=== PATIENT | female | born 1980 | race Caucasian/White ===

== ENCOUNTER 2018-04-09 14:59 | Outpatient (CLI) | payer BC ==
--- NOTE | 2018-04-09 16:02 | ULT ---
LEFT BREAST ULTRASOUND: Date: 04/09/18 HISTORY: 38-year-old female with palpable abnormality at the 11-12 o'clock positions of the left breast. FINDINGS: Correlation is made with mammograms from same date. Sonographic evaluation in the regions of palpable concern demonstrates cysts at the 11 and 12 o'clock positions of the left breast, measuring up to 6.0 mm. IMPRESSION: BIRADS Category 2 - Benign findings. Return to age-appropriate screening based on risk factors. POS: OFF
== END 2018-04-09 15:00 | disposition home or self-care (01) ==
LOC: BICMAMMO 14:59
PROVIDERS: ATTEND Family Medicine
DX: N63.22 Unspecified lump in the left breast, upper inner quadrant (principal)
CPT/HCPCS: 77066; G0279

== ENCOUNTER 2020-05-26 12:49 | Emergency (ER) | payer BC ==
[2020-05-26] MEDS ORDERED: HYDROcodone/Acetaminophen 5/325 mg Tablet ONE (14:17)
== END 2020-05-26 15:00 | disposition home or self-care (01) ==
LOC: ERS 12:49
DX: M79.661 Pain in right lower leg (principal)

== ENCOUNTER 2024-02-13 23:55 | Observation (INO) | payer BC ==
[2024-02-14] MEDS ORDERED: Ondansetron ODT 4 MG TAB ONE (00:06)
[2024-02-14] MEDS ORDERED: Aspirin Chewable 81 MG TAB ONE (00:06)
[2024-02-14 00:41] LABS: #Basophils 0.12 10x3/uL (0.0-0.2); %Basophils 1.1 % (0.0-1.0); %Eosinophils 1.9 % (0.0-10.0); %Lymphocytes 27.7 % (21.0-51.0); %Monocytes 7.8 % (0.0-10.0); Hematocrit 34.3 % (36.0-47.0); Hemoglobin 10.8 g/dL (12.0-16.0); Mean Corpuscular HGB CONC 31.5 g/dL (32.0-36.0); Mean Corpuscular Hemoglobin 25.9 pg (27.0-31.0); Mean Corpuscular Volume 82.3 fL (78.0-98.0); Mean Platelet Volume 10.4 fL (7.4-10.4); Platelet Count 330 10x3/uL (130-400); RBC Distribution Width 15.2 % (11.5-14.5); Red Blood Cell (RBC) Count 4.17 mill/uL (4.20-5.40)
[2024-02-14 01:01] LABS: Troponin I Less than 0.010 ng/mL (< 0.028)
[2024-02-14 01:03] LABS: ALT (SGPT) 20 U/L (8-55); AST (SGOT) 16 U/L (5-34); Albumin 3.8 g/dL (3.5-5.0); Alkaline Phosphatase 87 U/L (40-110); Anion Gap 13 mmol/L (10-20); BUN (Urea Nitrogen) 10 mg/dL (7.0-18.7); Bilirubin, Total 0.2 mg/dL (0.2-1.2); Calc. Creatinine Clearance 0 mL/min (70-130); Carbon Dioxide 22 mmol/L (22-29); Chloride 106 mmol/L (98-107); Estimated GFR 98; Globulin 3.5 g/dL (2.4-3.5); Glucose 117 mg/dL (70-105); Potassium 3.4 mmol/L (3.5-5.1); Protein, Total 7.3 g/dL (6.0-8.3); Sodium 138 mmol/L (136-145)
[2024-02-14 01:57] LABS: PTT 22.9 sec (22.9-36.1); Prothrombin Time 13.1 sec (12.0-14.7)
[2024-02-14] MEDS ORDERED: Meclizine HCl 25 MG TAB ONE ×2 (02:04→12:55)
[2024-02-14] MEDS ORDERED: Ondansetron PF 4 MG/2 ML Vial IVP PRN (05:22)
[2024-02-14] MEDS ORDERED: Potassium Chloride 20 MEQ TAB ONE (06:00)
[2024-02-14] MEDS: Potassium Chloride 20 MEQ TAB PO SCH (06:29)
[2024-02-14 07:09] LABS: #Basophils 0.13 10x3/uL (0.0-0.2); %Basophils 1.2 % (0.0-1.0); %Eosinophils 0.8 % (0.0-10.0); %Lymphocytes 19.6 % (21.0-51.0); Hematocrit 35.5 % (36.0-47.0); Hemoglobin 11.1 g/dL (12.0-16.0); Mean Corpuscular HGB CONC 31.3 g/dL (32.0-36.0); Mean Corpuscular Hemoglobin 25.9 pg (27.0-31.0); Mean Corpuscular Volume 82.9 fL (78.0-98.0); Mean Platelet Volume 10.9 fL (7.4-10.4); Platelet Count 290 10x3/uL (130-400); RBC Distribution Width 15.5 % (11.5-14.5); Red Blood Cell (RBC) Count 4.28 mill/uL (4.20-5.40)
[2024-02-14 07:16] VITALS: BMI 29.4
[2024-02-14 07:46] LABS: Anion Gap 13 mmol/L (10-20); BUN (Urea Nitrogen) 8 mg/dL (7.0-18.7); Calc. Creatinine Clearance 118 mL/min (70-130); Calcium 9.1 mg/dL (7.8-10.44); Carbon Dioxide 22 mmol/L (22-29); Cardiac Risk 3.6 (Less than 4.5); Chloride 108 mmol/L (98-107); Cholesterol 142 mg/dl (< 200 Desired); Estimated GFR 108; Glucose 100 mg/dL (70-105); HDL Cholesterol 39 mg/dL (>60 Neg Risk); LDL Cholesterol, Calculated 84 mg/dL; Potassium 4.1 mmol/L (3.5-5.1); Sodium 139 mmol/L (136-145); Triglycerides 96 mg/dL (Less than 150)
[2024-02-14] MEDS ORDERED: Iopamidol 370 76% 100 ML VIAL ONE (09:02)
[2024-02-14] MEDS ORDERED: Meclizine HCl 25 MG TAB PO PRN (10:00)
[2024-02-14] MEDS: Meclizine HCl 25 MG TAB PO SCH (12:59)
[2024-02-14] MEDS ORDERED: Acetaminophen 325 MG TAB ONE (15:07)
[2024-02-14] MEDS: Acetaminophen 325 MG TAB PO PRN (15:09)
[2024-02-14 15:51] VITALS: BP 115/71; TEMP 98.1
== END 2024-02-14 16:12 | disposition home or self-care (01) ==
LOC: ERS 23:55 → ERHOLD 02-14 02:38
PROVIDERS: ADMIT Internal Medicine; ATTEND Internal Medicine
DX: R42 Dizziness and giddiness (principal); E04.1 Nontoxic single thyroid nodule; Z87.891 Personal history of nicotine dependence
CPT/HCPCS: 36415; 36416; 70450; 70496; 70498; 70551; 71045; 80053; 80061; 83735; 84484; 85025; 85610; 85730; 86850; 86900; 86901; 93005; G0378; Q0162; Q9967